=== PATIENT | female | born 1980 | race Caucasian/White ===

== ENCOUNTER 2018-10-13 22:08 | Emergency (ER) | payer BC ==
[~2018-10-13] VITALS: Ht 160 cm; Wt 51.3 kg
[2018-10-13] MEDS ORDERED: ZOLOFT25 MG ORAL (22:15)
[2018-10-13 22:30] VITALS: BP 130/74
--- NOTE | 2018-10-13 22:34 | Emergency Room Report ---
History of Present Illness General Chief Complaint: Chest Pain Source: Patient Present Illness HPI Is a 38-year-old female with history of anxiety. She presents with chief complaint of chest pain and palpitation. Onset was acute. Occur about 30 minutes ago. He was watching TV when she felt her heart beating fast. Still have palpitation. Has numbness and tingliness her left arm. This happen before but never this severe. Denies any suicidal thoughts or homicidal thought. Denies any other complaint. Allergies: Coded Allergies: No Known Allergies (Unverified , 10/13/18) Patient History Past Medical History: see triage record, old chart reviewed, psych hx Past Surgical History: none Pertinent Family History: none Social History: Denies: smoking Last Menstrual Period: 10/12/2018 Now: No : 0 Para: 0 Immunizations: other Reviewed Nursing Documentation: PMH: Agreed; PSxH: Agreed Nursing Documentation-PMH Past Medical History: No Stated History Review of Systems Eye: Denies: eye pain, blurred vision ENT: Denies: ear pain, nose congestion, throat swelling Respiratory: Reports: shortness of breath; Denies: cough Cardiovascular: Reports: chest pain, palpitations Gastrointestinal: Denies: abdominal pain, diarrhea, nausea, vomiting Musculoskeletal: Denies: back pain, joint pain Skin: Denies: rash Neurological: Denies: headache, numbness Endocrine: Denies: increased thirst, increased urine Hematologic/Lymphatic: Denies: easy bruising All Other Systems: negative except mentioned in HPI Physical Exam Vital Signs Date Time Temp Pulse Resp B/P (MAP) Pulse Ox O2 Delivery O2 Flow Rate FiO2 10/13/18 22:11 97.7 90 16 127/83 100 Room Air vitals normal Sp02 EP Interpretation: reviewed, normal General Appearance: well appearing, no apparent distress, alert Head: normocephalic, atraumatic Eyes: bilateral eye PERRL, bilateral eye EOMI ENT: hearing grossly normal, normal pharynx Neck: full range of motion, supple, no meningismus Respiratory: chest non-tender, lungs clear, normal breath sounds Cardiovascular #1: regular rate, rhythm, no murmur Gastrointestinal: normal bowel sounds, non tender, no mass, no organomegaly, no bruit, non-distended Musculoskeletal: back normal, gait/station normal, normal range of motion Psychiatric: mood/affect normal Skin: warm/dry Medical Decision Making Diagnostic Impression: Primary Impression: Chest pain Qualified Codes: R07.9 - Chest pain, unspecified Additional Impression: Palpitations ER Course Patient present with palpitation and chest pain. His most likely anxiety/ stress related. No evidence of ACS, PE, dissection to name a few. Patient felt better now. We'll discharge home. EKG Diagnostic Results Rate: normal Rhythm: NSR ST Segments: no acute changes ASA given to the pt in ED: No - Noncardiac Chest pain Rhythm Strip Diag. Results Rhythm Strip Time: 22:34 EP Interpretation: yes Rate: 80 Rhythm: NSR, no PVC's, no ectopy Last Vital Signs Date Time Temp Pulse Resp B/P (MAP) Pulse Ox O2 Delivery O2 Flow Rate FiO2 10/13/18 22:11 97.7 90 16 127/83 100 Room Air Status: improved Disposition: HOME, SELF-CARE Condition: Stable Additional Instructions: Follow-up with your doctor in 7 days. Return if symptom worsen. Philip Armando MD Oct 13, 2018 22:34
[2018-10-13 22:44] LABS: BASOPHILS % (AUTO) 0.7 % (0.0-2.0); EOSINOPHILS % (AUTO) 1.1 % (0.0-3.0); HEMATOCRIT 36.2 % (37.0-47.0); HEMOGLOBIN 11.9 G/DL (12.0-16.0); LYMPHOCYTES % (AUTO) 36.4 % (20.0-45.0); MEAN CORPUSCULAR VOLUME 82 FL (80-99); MONOCYTES % (AUTO) 8.5 % (1.0-10.0); NEUTROPHILS % (AUTO) 53.3 % (45.0-75.0); PLATELET COUNT 299 K/UL (150-450); RED BLOOD COUNT 4.42 M/UL (4.20-5.40); RED CELL DISTRIBUTION WIDTH 12.5 % (11.6-14.8); WHITE BLOOD COUNT 9.9 K/UL (4.8-10.8)
[2018-10-13] MEDS ORDERED: LORazepam Inj 2mg/ml 1ml IV ONE (22:45)
[2018-10-13 22:56] LABS: ANION GAP 5 mmol/L (5-15); BLOOD UREA NITROGEN 9 mg/dL (7-18); CALCIUM 9.2 MG/DL (8.5-10.1); CARBON DIOXIDE 29 MMOL/L (21-32); CHLORIDE 106 MMOL/L (98-107); CREATININE 0.6 MG/DL (0.55-1.30); POTASSIUM 3.3 MMOL/L (3.5-5.1); SODIUM 140 MMOL/L (136-145)
[2018-10-13 23:00] VITALS: BP 126/76
[2018-10-13 23:10] VITALS: BP 126/76
--- NOTE | 2018-10-14 16:30 | Cardiology Report ---
APPROVED REPORT EKG Measurement Heart [id number] Normal sinus rhythm with sinus arrhythmia Normal ECG
== END 2018-10-13 23:10 | disposition home or self-care (01) ==
LOC: EMR 22:26
DX: R07.9 Chest pain, unspecified (principal); R00.2 Palpitations; R20.2 Paresthesia of skin
CPT/HCPCS: 36415; 80048; 84484; 85025; 93005; 96374; 99283